=== PATIENT | female | born 1965 | race Caucasian/White ===

== ENCOUNTER 2017-04-08 15:00 | Observation (INO) | payer OTHER ==
--- NOTE | 2017-04-08 15:17 | HP ---
SUPERVISING PHYSICIAN: Issac Mcghee M.D. CHIEF COMPLAINT: Right sided back pain. HISTORY OF PRESENT ILLNESS: This is a 51 year-old female patient with a long history of kidney stones. She has had some back pain that has been going on for about 6 months, but in the last 24 hours she had some significant right sided back pain. She went to see Dr. Potter today. He did a urinalysis and it had +1 blood, negative for nitrites, white cells 10 to 20, red cells 5 to 10, moderate epithelial cells and 3+ bacteria. Due to her significant history of kidney stones, he called me for direct admission. PAST MEDICAL HISTORY: 1. Esophageal spasms that mimicked chest pain treated with Lisinopril and Protonix per Dr. Aguirre. 2. Essential hypertension. 3. History of kidney stones. 4. Onychomycosis of the toenails. PAST SURGICAL HISTORY: 1. Hysterectomy. 2. Cholecystectomy. 3. section times 1. 4. Lap band. 5. Hemorrhoidectomy. 6. Kidney stone removal by surgery. OUTPATIENT MEDICATIONS: 1. Lisinopril. 2. Estropipate. 3. Lamisil. ALLERGIES: MORPHINE, DEMEROL, METOPROLOL SUCCINATE. FAMILY HISTORY: Significant for coronary artery disease, myocardial infarction , hypertension, hyperlipidemia. SOCIAL HISTORY: She is . She as 2 children. She denies any tobacco, ETOH or illicit drug use. REVIEW OF SYSTEMS: Negative except as per History of Present Illness. PHYSICAL EXAMINATION: VITAL SIGNS: She is afebrile. Heart rate 65, blood pressure 142/80, respiratory rate 18, O2 sat is 100% on room air. GENERAL: This is a 51 year-old female patient who is lying in her hospital bed. She appears to be in mild pain. HEENT: Normocephalic and atraumatic. Pupils are equal and reactive. Oropharynx is clear. NECK: Supple without mass. CHEST: Clear to auscultation bilaterally. CARDIOVASCULAR: Regular rate and rhythm. ABDOMEN: Soft, nondistended, non-tender. Bowel sounds are positive. She does have some significant right CVA pain. EXTREMITIES: No cyanosis, clubbing or edema. NEUROLOGIC: She is awake, alert and oriented times three. LABORATORY: Urinalysis is as per History of Present Illness. Electrolytes are basically within normal limits except for potassium is 3.3. CBC is within normal limits. Culture of the urine is pending. RADIOLOGY: CT of the abdomen and pelvis with and without contrast is pending. ASSESSMENT: 1. Nephrolithiasis with a significant history of kidney stones. 2. Intractable pain related to nephrolithiasis. 3. Hypertension. 4. Mild hypokalemia. PLAN: We will place the patient is Observation. I have ordered a CT of the abdomen and pelvis with and without contrast. I spoke with Dr. Potter and depending on the results of the CT scan will depend on when she will get a referral to a urologist. For tonight, will give her pain control with [place] and Toradol. I have also given her a PPI for ulcer prophylaxis as well as Lovenox for DVT prophylaxis. I will hold on ordering any labs in the morning as most of her labs are within normal limits. I will also give her a dose of potassium. Hopefully we can keep her pain under control overnight and she can followup with a urologist as indicated. Meanwhile, we will continue to monitor the patient closely and followup as needed. ADDENDUM: The CT of the abdomen and pelvis was completed. Per radiology interpretation shows a 2 x 1.2 cm stone within the right renal pelvis and mild hydronephrosis with adjacent stranding, a superimposed infection may be present , mild right sided hydroureter with no distal obstructing stone is identified. An additional 5 mm stone along the lower pole of the right kidney and a 2 mm nonobstructing stone along the lower pole of the left kidney. I called Dr. Ocampo , urologist in [place], and reported the findings as well as the clinical history of the patient. He recommended that her pain be controlled overnight and to start her on some antibiotics as well as to send her home on some antibiotics, and to call his office in the morning so he can see her early next week for possible lithotripsy as she will be unable to pass that stone. I will put her on IV Levaquin tonight and we can send her home on some Cipro or some Bactrim. She can go by Dr. Potter' office in the morning to get a prescription for Hydrocodone, and we can send her home on some Tramadol. She has also been instructed that if the pain returns that she would need to come to the Emergency Room and she would have to be transferred to [facility] as soon as possible. I have instructed the patient on what Dr. Ocampo has recommended and we will follow her closely and treat as needed. #[id number] [facility]
[2017-04-08] MEDS ORDERED: SODIUM CHLORIDE 0.9% (FLUSH) 10 ML SYG IV PRN (15:36)
[2017-04-08] MEDS ORDERED: HYDROcodone 5MG/APAP 325MG 1 EA TAB PO PRN (15:38)
[2017-04-08] MEDS ORDERED: ONDANSETRON INJ 4 MG/2 ML VIAL IV PRN (15:38)
[2017-04-08] MEDS ORDERED: IV SET AND CAP CHANGE INJ INJ SCH (16:00)
[2017-04-08] MEDS ORDERED: KETOROLAC TROMETHAMINE INJ 30 MG/ML VIAL IV PRN (16:07)
[2017-04-08] MEDS ORDERED: HYDROcodone 10MG/APAP 325MG 1 EA TAB PO PRN (16:08)
--- NOTE | 2017-04-08 16:10 | PCM.CORE ---
Physician DVT/VTE - Prophylaxis Currently: Patient already on anticoagulation therapy - Nurse DVT Assessment & Total Each Risk Factor Represents 1 Point: Age 41-60 Each Risk Factor is 1 Point: Obesity (BMI >25) DVT Assessment Score: 2 - 2 Moderate Risk Treatments: Early Ambulation *, Sequential Compression Device
[2017-04-08] MEDS ORDERED: ENOXAPARIN SODIUM 40 MG/0.4 ML SYG SUBCU SCH (16:30)
[2017-04-08] MEDS ORDERED: POTASSIUM CHLORIDE 20 MEQ TAB PO ONE (16:43)
--- NOTE | 2017-04-08 17:03 | CT ---
EXAM: CT abdomen and pelvis with contrast. INDICATION: Abdominal pain, acute. TECHNIQUE: Contiguous axial CT images of the abdomen and pelvis. Intravenous contrast: Present. Oral contrast: Absent. DLP 1559 mGy-cm. This exam was performed according to our departmental dose-optimization program, which includes automated exposure control, adjustment of the mA and/or kV according to patient size and/or use of iterative reconstruction technique. COMPARISON: 02/16/2016. FINDINGS: Lower chest: Partially imaged. Lung bases: Unremarkable. Cardiac apex: Unremarkable. Solid abdominal viscera: Liver: Unremarkable. Gallbladder: Cholecystectomy Pancreas: Unremarkable. Spleen: Unremarkable. Adrenal glands: Unremarkable. Right kidney: There is a 2.0 x 1.2 cm stone within the renal pelvis with mild hydronephrosis and stranding around the renal pelvis. There is an additional 5 mm stone along the lower pole. There is mild hydroureter with no distal obstructing stone identified. Left kidney: There is a 2 mm nonobstructing stone along the lower pole. Urinary bladder: Unremarkable. Abdominal aorta: Unremarkable. Peritoneal: Free fluid: None. Free air: None. Other: No pathologic sized lymph nodes in the upper abdomen. Bowel: Stomach: Adjustable laparoscopic band is in place Small bowel: Unremarkable. Appendix: Unremarkable. Colon: Unremarkable. Rectum: Unremarkable. Uterus: Hysterectomy Bones: Unremarkable. IMPRESSION: 2.0 x 1.2 cm stone within the right renal pelvis with mild hydronephrosis and adjacent stranding. A superimposed infection may be present. Mild right-sided hydroureter with no distal obstructing stone identified. Additional 5 mm stone along the lower pole of the right kidney. 2 mm nonobstructing stone along the lower pole of the left kidney. Electronically signed by: Tito Caal MD 04/08/2017 5:02 PM CDT Workstation: [id number]
[2017-04-08] MEDS: KCL 20MEQ/0.45% NS 1,000 ML IVS PRN (17:16)
[2017-04-08] MEDS ORDERED: levoFLOXacin 750MG IV 750 MG in PREMIX BAG 1 BAG IVPB SCH (18:30)
[2017-04-08] MEDS ORDERED: LISINOPRIL 10 MG TAB ONE ×2 (19:30→20:55)
[2017-04-08] MEDS ORDERED: TERBINAFINE HCL 250 MG TAB PO ONE (20:43)
[2017-04-08] MEDS ORDERED: NON-FORMULARY MEDICATION 1 EA MIS (Lisinopril [Lisinopril] 20 MG) PO SCH (21:00)
[2017-04-08] MEDS ORDERED: SODIUM CHLORIDE 0.9% (FLUSH) 10 ML SYG IV SCH (21:00)
[2017-04-08] MEDS ORDERED: TERBINAFINE HCL 250 MG TAB PO SCH (21:00)
[2017-04-08] MEDS ORDERED: ESTROPIPATE PO SCH (21:18)
[2017-04-09] MEDS: KCL 20MEQ/0.45% NS 1,000 ML IVS PRN (02:37)
[2017-04-09] MEDS ORDERED: OMEPRAZOLE CAP 20 MG CAP PO SCH (06:30)
[2017-04-09] MEDS ORDERED: LISINOPRIL 10 MG TAB ONE (07:13)
[2017-04-09] MEDS ORDERED: ESTROPIPATE PO SCH (09:00)
[2017-04-09] MEDS ORDERED: cefTRIAXone SODIUM 1 GM in SODIUM CHL 0.9% 50ML MIN-BAG+ 50 ML IVPB SCH (09:00)
[2017-04-09] MEDS ORDERED: TERBINAFINE HCL 250 MG TAB PO SCH (09:00)
[2017-04-09] MEDS ORDERED: LISINOPRIL 10 MG TAB PO SCH (09:00)
[2017-04-09] MEDS ORDERED: ENOXAPARIN SODIUM 40 MG/0.4 ML SYG SUBCU SCH (09:00)
[2017-04-09] MEDS ORDERED: AZITHROMYCIN IV 500 MG in SODIUM CHLORIDE 0.9% 250ML 250 ML IVPB SCH (09:00)
[2017-04-09] MEDS ORDERED: cefTRIAXone SODIUM 1 GM VIAL ONE (09:09)
[2017-04-09] MEDS ORDERED: SODIUM CHL 0.9% 50ML MIN-BAG+ 50 ML IVPB ONE (09:09)
[2017-04-09] MEDS ORDERED: CIPROFLOXACIN 500 MG TAB PO SCH (09:30)
[2017-04-09 10:08] VITALS: BP 125/75; TEMP 97.8; O2SAT 97
[2017-04-09] MEDS ORDERED: KETOROLAC TROMETHAMINE INJ 30 MG/ML VIAL IV ONE (10:09)
[2017-04-09] MEDS ORDERED: KETOROLAC TROMETHAMINE INJ 30 MG/ML VIAL ONE (10:10)
--- NOTE | 2017-04-10 15:49 | DS ---
SUPERVISING PHYSICIAN: Issac Mcghee M.D. DISCHARGE DIAGNOSIS: ASSESSMENT: 1. Nephrolithiasis with a 2 x 1.2 cm stone in the right pelvis resulting in mild hydronephrosis with concerns for underlying infectious process with mild right sided hydroureter but no evidence of obstruction. 2. Intractable pain related to nephrolithiasis as noted in #1. 3. Hypertension. 4. Mild hypokalemia. HISTORY OF PRESENT ILLNESS: Ms. Virgen is a 51 year-old female patient that has a longstanding history of multiple kidney stones. She has had some back pain previously on and off for 6 months, but in the last 24 hours prior to admission she had some significant right sided back pain. She was seen in the office by Dr. Potter after which she had a urinalysis done that showed +1 blood but negative nitrites. Due to the significant history of kidney stones, Dr. Potter requested the patient be directly admitted to the hospital for further evaluation. The patient was placed in observation in stable condition. LABORATORY: CBC on admission showed to be within normal limits. Chemistries showed just mild hypokalemia with potassium 3.3. All other indices were within normal limits. No urinalysis was completed on admission. MICROBIOLOGY: Urine culture showed no growth at 48 hours. RADIOLOGY: She had an abdominal and pelvic CT with contrast and per radiology interpretation there was note of a 2 x 1.2 cm stone within the right renal pelvis with mild hydronephrosis and adjacent stranding. A superimposed infection could represent the findings with mild right sided hydroureter with no distal obstructing stone noted. There was also mention of a 5 mm stone on the lower pole of the right kidney, a 2 mm obstructing stone along the left pole of the left kidney. HOSPITAL COURSE: Ms. Virgen was admitted as noted above on 04/08/17 for intractable pain secondary to a large kidney stone. She was started on IV fluids, given pain management and had shown good clinical improvement. Dr. Ocampo was consulted. He recommended that the patient due to the size of the stone, would not pass. He started her on antibiotics prophylactically and have her followup with Dr. Ocampo in the coming week for a lithotripsy procedure. PLAN: Ms. Virgen was discharged on 04/09/17 with instructions to followup with her primary care provider, Dr. Marlow as well as Dr. Ocampo as scheduled. She is to resume her home medications as prior to her hospitalization and to return to the hospital should she have any concerning symptoms or worsening of her condition. DISCHARGE MEDICATIONS: 1. Zofran 4 mg every 4 hours, #8. 2. Toradol tablets 10 mg every 6 hours, #20. 3. Ciprofloxacin 500 mg twice daily, #28. 4. Pyridium 200 mg 3 times a day, #9. Diet at discharge was normal diet as tolerated. Activity as tolerated. Encourage fluids. At discharge, condition was stable and improved. #[id number] [facility]
== END 2017-04-09 10:27 | disposition home or self-care (01) ==
LOC: MS 15:00 → INTOOBSV 15:00
PROVIDERS: ADMIT Nurse Practitioner Acute Care; ATTEND Nurse Practitioner Family
DX: N13.2 Hydronephrosis with renal and ureteral calculous obstruction (principal); I10 Essential (primary) hypertension; E87.6 Hypokalemia; Z87.442 Personal history of urinary calculi; Z79.899 Other long term (current) drug therapy; Z88.6 Allergy status to analgesic agent; Z88.8 Allergy status to other drugs, medicaments and biological substances; Z82.49 Family history of ischemic heart disease and other diseases of the circulatory system
CPT/HCPCS: 36415; 74178; 80053; 85025; 87086; 94760 ×4; G0378; J1650; J1885; J1956; J3480 ×2

== ENCOUNTER → 2017-04-08 | Outpatient (CLI) | payer OTHER | END | disposition home or self-care (01) | LOC: GMAL 15:27 | PROVIDERS: ATTEND Family Medicine | DX: R10.84 Generalized abdominal pain (principal) ==

== ENCOUNTER → 2017-11-11 | Outpatient (CLI) | payer OTHER ==
--- NOTE | 2017-11-11 15:54 | MAM ---
EXAM DESCRIPTION: 3D Screening BILATERAL : Digital Mammography. CLINICAL HISTORY: 52 years Female ANNUAL SCREENING . No complaints. No family history breast cancer. Childbirth. Hysterectomy. Currently on HRT. COMPARISON: 2-D digital screening bilateral study 04/09/2016. Report from prior examination also reviewed. TECHNIQUE: Bilateral CC and MLO projection full-field images, 3-D tomosynthesis digital mammographic technique. CAD not utilized. FINDINGS: The breast parenchymal density pattern is: Scattered areas of fibroglandular density. No skin thickening or nipple retraction bilateral solitary microcalcifications. Solitary coarse calcifications on the left. No focal, stellate mass or density, focal asymmetry , and no suspicious microcalcifications bilaterally. Stable mammograms compared to prior study, taking into account differences in mammographic technique IMPRESSION: BI-RADS CATEGORY: 2 - BENIGN FINDINGS. FOLLOW UP: Routine digital bilateral screening, one year interval from October 2017. Written communication explaining the IMPRESSION and follow-up, will be mailed to the patient and referring health care provider. According to the [employer], yearly mammograms are recommended starting at age 40 and continuing as long as a woman is in good health. Any breast change noted on a breast self-exam should be reported promptly to the patient's healthcare provider. Breast MRI is recommended for women with an approximately 20-25% or greater lifetime risk of breast cancer, including women with a strong family history of breast or ovarian cancer and women who have been treated for Hodgkin's disease. A negative mammographic report should not delay tissue diagnosis in patients with significant clinical history or physical findings. Extremely dense breast tissue limits the sensitivity of digital mammography. Electronically signed by: Praveen Burns MD 11/11/2017 3:53 PM CDT
== END ==
LOC: MAMMO 09:17
PROVIDERS: ATTEND Obstetrics & Gynecology
DX: Z12.31 Encounter for screening mammogram for malignant neoplasm of breast (principal)

== ENCOUNTER → 2019-07-19 | Outpatient (CLI) | payer BC | LOC: RESP 14:03 | PROVIDERS: ATTEND Family Medicine | DX: R00.2 Palpitations (principal) ==

== ENCOUNTER → 2019-10-27 | Outpatient (CLI) | payer BC | LOC: GMAL 11:42 | PROVIDERS: ATTEND Family Medicine | DX: Z00.01 Encounter for general adult medical examination with abnormal findings (principal) ==

== ENCOUNTER 2020-04-23 05:04 | Day surgery (SDC) | payer BC ==
[2020-04-23] MEDS ORDERED: DEXAMETHASONE INJ 10 MG/ML VIAL ONE (07:34)
[2020-04-23] MEDS ORDERED: LIDOCAINE 1% 10 ML VIAL INJ ONE (07:34)
[2020-04-23] MEDS ORDERED: BETAMETHASONE ACETATE/BETAMETH 6 MG/ML VIAL IM ONE (07:34)
[2020-04-23] MEDS ORDERED: BUPIVACAINE 0.5% 30 ML VIAL INJ ONE (07:35)
== END 2020-04-23 08:54 | disposition home or self-care (01) ==
LOC: AMB 05:04
PROVIDERS: ATTEND Family Medicine Sports Medicine
DX: M47.896 Other spondylosis, lumbar region (principal); M54.5 Low back pain; I10 Essential (primary) hypertension; Z88.5 Allergy status to narcotic agent; Z88.8 Allergy status to other drugs, medicaments and biological substances; Z79.899 Other long term (current) drug therapy